=== PATIENT | female | born 1990 | race Caucasian/White ===

== ENCOUNTER 2017-02-01 10:14 | Outpatient (CLI) | payer BC ==
[2017-02-01 10:51] VITALS: BP 131/82; PULSE 93; RESP 16; TEMP 97.7
== END 2017-02-01 11:43 | disposition home or self-care (01) ==
LOC: FBPOP 10:14
PROVIDERS: ATTEND Obstetrics & Gynecology
DX: O47.1 False labor at or after 37 completed weeks of gestation (principal); Z3A.39 39 weeks gestation of pregnancy
CPT/HCPCS: 59025; 99213

== ENCOUNTER 2017-02-01 23:53 | Inpatient (IN) | payer BC ==
[2017-02-02] MEDS ORDERED: LIDOCAINE 1% (PF) 10 MG/ML (30 ML SDV) SQ PRN (01:10)
[2017-02-02] MEDS ORDERED: OXYTOCIN 10 UNIT/ML 1 ML VIAL IM PRN (01:10)
[2017-02-02] MEDS ORDERED: CARBOPROST TROMETHAMINE 250 MCG/ML 1 ML AMP IM PRN (01:10)
[2017-02-02] MEDS ORDERED: BUTORPHANOL 1 MG/ML 1 ML VIAL IV PRN (01:10)
[2017-02-02] MEDS ORDERED: TERBUTALINE 1 MG/ML VIAL SQ PRN (01:10)
[2017-02-02] MEDS ORDERED: METHYLERGONOVINE 0.2 MG/ML 1 ML AMP IM PRN (01:10)
[2017-02-02] MEDS: LACTATED RINGERS 1,000 ML IV SCH ×3 (01:40→05:54)
[2017-02-02 01:45] LABS: Basophils % (A) 0 %; CH 25.6; Eosinophils # (A) 0.1 k/uL (0-0.7); Eosinophils % (A) 0 %; HCT 31.6 % (34.0-46.0); HDW 3.88; HGB 10.8 gm/dL (11.4-16.0); Hypochromasia Slight; Luc # (Auto) 0.24; Luc % (Auto) 2; Lymphocytes # (A) 1.5 k/uL (1.0-4.8); Lymphocytes % (A) 12 %; MCH 25.7 pg (25.0-35.0); MCV 75.6 fL (80.0-100.0); Mean Platelet Volume 9.4; Microcytosis Slight; Monocytes # (A) 0.7 k/uL (0-1.0); Monocytes % (A) 5 %; Neutrophils # (A) 9.7 k/uL (1.3-7.7); Neutrophils % (A) 80 %; Poikilocytosis Slight; RBC 4.18 m/uL (3.80-5.40); RDW 15.8 % (11.5-15.5); WBC 12.1 k/uL (3.8-10.6); WBC (Perox) 11.95
[2017-02-02] MEDS ORDERED: BUPIVACAINE (PF) 0.25% 30 ML VIAL ONE (02:45)
[2017-02-02] MEDS ORDERED: fentaNYL (PF) 50 MCG/ML 5 ML AMP ONE (02:45)
[2017-02-02] MEDS ORDERED: SODIUM CHLORIDE 0.9% 100 ML BAG ONE (02:45)
[2017-02-02] MEDS ORDERED: BUPIVACAINE (PF) 0.25% 25 ML, fentaNYL (PF) 200 MCG in SODIUM CHLORIDE 0.9% 71 ML EPIDURAL ONE (02:58)
[2017-02-02] MEDS ORDERED: ONDANSETRON 4 MG/2 ML VIAL IVP STA (04:41)
[2017-02-02] MEDS ORDERED: diphenhydrAMINE 50 MG/ML 1 ML VIAL IVP STA (04:41)
[2017-02-02] MEDS: OXYTOCIN 20 UNITS/1000 ML NS 1,000 ML IV SCH (06:55)
[2017-02-02 07:53] VITALS: BMI 33.2
--- NOTE | 2017-02-02 09:15 | P.HPOB ---
History of Present Illness H&P Date: 02/02/17 Chief Complaint: 39+ weeks, early active labor The patient is a 26-year-old 1 para 0 admitted at 39+ weeks as established by last menstrual period and confirmed by second trimester ultrasound. She is admitted in early active labor having shown cervical change from presentation yesterday in the early to mid morning to her presentation last evening around midnight. Contractions were regular. Her has been uncomplicated and group B strep status is negative. Upon admission, all signs are reassuring. Obstetrical history: 1 para 0 with current statistics listed in history present illness. EDC of 02/06/2017 was established by last menstrual period and confirmed by second trimester ultrasound. Laboratory workup demonstrates a blood type of B+ with a negative antibody screen. Rubella status is immune. All other laboratory workup was within normal limits. Early Glucola as well as second trimester Glucola were within normal limits and group B strep status is negative. Gynecologic history: Unremarkable with no history of any infections to include STDs. Review of Systems Review of systems is confined to history of present illness. Past Medical History Past Medical History: No Reported History History of Any Multi-Drug Resistant Organisms: None Reported Past Surgical History: Adenoidectomy, Tonsillectomy Past Anesthesia/Blood Transfusion Reactions: Postoperative Nausea & Vomiting ( PONV) Past Psychological History: No Psychological Hx Reported Smoking Status: Never smoker - Past Family History Mother Family Medical History: Mitral Valve Prolapse (MVP) Medications and Allergies Home Medications Medication Instructions Recorded Confirmed Type Pnv,Calcium 72/Iron/Folic Acid 1 tab PO DAILY 01/23/17 02/01/17 History [ Plus Tablet] Allergies Allergy/AdvReac Type Severity Reaction Status Date / Time No Known Allergies Allergy Verified 02/01/17 23:56 Exam - Vital Signs Vital signs: Vital Signs Temp Pulse Resp BP Pulse Ox 02/01/17 23:57 96.2 F L 95 16 137/85 97 Intake and Output 02/01/17 02/02/17 02/02/17 22:59 06:59 14:59 Output Total 200 Balance -200 Output: Urine 200 Straight 200 Other: # Voids 0 Weight 102.058 kg In general, this is a well-developed, well-nourished white female in no acute distress. Her heart has a regular rhythm and rate without murmur. Her lungs are clear to auscultation bilaterally in all quiros. Her abdomen is gravid, nondistended, has normal active bowel sounds, is soft, nontender, and without any palpable masses aside from uterine fundus. Her extremities are without any cyanosis, clubbing, or significant edema and are nontender to palpation bilaterally. Digital cervical examination demonstrates her cervix to be approximately 6 cm dilated, 80% effaced, the vertex in presentation at -2 station. Artificial rupture of membranes is carried out demonstrating what appears to be lightly meconium-stained fluid. Results Result Diagrams: 02/02/17 01:40 Abnormal Lab Results - Last 24 Hours (Table) 02/02/17 Range/Units 01:40 WBC 12.1 H (3.8-10.6) k/uL Hgb 10.8 L (11.4-16.0) gm/dL Hct 31.6 L (34.0-46.0) % MCV 75.6 L (80.0-100.0) fL RDW 15.8 H (11.5-15.5) % Neutrophils # 9.7 H (1.3-7.7) k/uL Assessment and Plan (1) Active labor at term Status: Acute Plan: The patient will continue to have close maternal and surveillance and expectant management will be practiced. She does have an epidural catheter in place for analgesia and Pitocin augmentation has been added as she has made little to no progress over the last several hours. The nurse drafter topographical will be present at the delivery for the possibility of direct laryngoscopy, should it be necessary.
[2017-02-02] MEDS ORDERED: Acetaminophen-Codeine 300-30mg TAB PO PRN ×2 (10:53)
[2017-02-02] MEDS ORDERED: diphenhydrAMINE 50 MG CAP PO PRN (10:53)
[2017-02-02] MEDS ORDERED: LANOLIN CREAM 5 GM TUBE TOPICAL PRN (10:53)
[2017-02-02] MEDS ORDERED: HYDROCORTISONE 2.5% RECTAL CREAM 30 GM TUBE RECTAL PRN (10:53)
[2017-02-02] MEDS ORDERED: diphenhydrAMINE 50 MG/ML 1 ML VIAL IVP PRN ×2 (10:53)
[2017-02-02] MEDS ORDERED: ZOLPIDEM 5 MG TAB PO PRN (10:53)
[2017-02-02] MEDS ORDERED: BENZOCAINE SPRAY 57GM TOPICAL PRN (10:53)
[2017-02-02] MEDS ORDERED: ACETAMINOPHEN TAB 325 MG TAB PO PRN (10:53)
[2017-02-02] MEDS ORDERED: SIMETHICONE 80 MG CHEWABLE PO PRN (10:53)
[2017-02-02] MEDS ORDERED: WITCH HAZEL 1 EACH MED..PAD TOPICAL PRN (10:53)
[2017-02-02] MEDS ORDERED: diphenhydrAMINE 25 MG CAP PO PRN (10:53)
--- NOTE | 2017-02-02 10:57 | P.PROBDLV ---
Vaginal Delivery Note - . Vaginal Delivery Note: The patient is a 26-year-old 1 para 0 admitted at 39-3/7 weeks by good dating parameters. She is admitted in early active labor with all signs reassuring. She has been expressing latent labor for approximately 12-24 hours prior to presentation. On labor and delivery, she had an epidural catheter placed for analgesia and then her contractions slowed as did cervical dilation. She ultimately underwent artificial rupture of membranes demonstrating thin meconium-stained fluid and had Pitocin augmentation started. She then progressed fairly quickly through the remainder of the active phase of labor to complete and 0 to +1 station. She pushed over the course of approximately 20 minutes to a normal spontaneous vaginal delivery of a viable 7 lbs. 6 oz. baby girl with Apgars of 9 at 1 minute and 9 at 5 minutes delivered in the left occiput anterior position. Thorough suctioning of the nose and mouth were carried out on the perineum and the nurse branch rental manager was standing by. The baby , however was born and vigorous immediately and the nurse branch rental manager was dismissed. The placenta was delivered spontaneously, intact, and grossly normal with a grossly normal, centrally inserted three-vessel cord. There was a first-degree midline perineal laceration which was repaired with a single [id number] stitch of 3-0 chromic catgut over 1% lidocaine local block. There were no further lacerations of the perineum, vagina, or cervix. Estimated blood loss for the case was approximately 200 mL. There were no complications. All sponge, instrument, and needle counts were correct. The patient tolerated the procedure well. Both mother and are resting comfortably in recovery.
[2017-02-02] MEDS: SENNOSIDES-DOCUSATE SODIUM 1 EACH TAB PO SCH (19:42)
[2017-02-02] MEDS: IBUPROFEN 600 MG TAB PO PRN (23:09)
[2017-02-03] MEDS: OXYTOCIN 20 UNITS/1000 ML NS 1,000 ML IV SCH (00:31)
[2017-02-03] MEDS: IBUPROFEN 600 MG TAB PO PRN (08:17)
[2017-02-03] MEDS: SENNOSIDES-DOCUSATE SODIUM 1 EACH TAB PO SCH (08:18)
[2017-02-03 08:42] VITALS: RESP 20
[2017-02-03 08:44] VITALS: BP 109/64; PULSE 80; TEMP 98.5
--- NOTE | 2017-02-03 09:45 | P.DS ---
Providers Date of admission: 02/02/17 01:26 Expected date of discharge: 02/03/17 Attending physician: Waleska Kothari Primary care physician: Waleska Kothari - Discharge Diagnosis(es) (1) Active labor at term Current Visit: Yes Status: Acute (2) Normal spontaneous vaginal delivery Current Visit: Yes Status: Acute Hospital Course: The patient is a 26-year-old 1 para 0 admitted at 39+ weeks by good dating parameters. She is admitted in early active labor with all signs reassuring. Her was uncomplicated and group B strep status is negative. On admission, she had an epidural catheter placed for analgesia and then had her labor course slow. She ultimately underwent artificial rupture of membranes and Pitocin augmentation and then progressed to complete though she did a second placement of the epidural as it was dislodged. She then pushed to a normal spontaneous vaginal delivery of a viable 7 lbs. 6 oz. baby girl with Apgars of 9 at 1 minute and 9 at 5 minutes. Her course was unremarkable with vital signs remaining stable and her temperature was afebrile throughout. She was deemed stable for discharge by day #1 was discharged home to follow-up in the office in 6 weeks' time routinely. Discharge instructions in included calling for any significantly increased bleeding or foul-smelling lochia, significantly increased fever abdominal pain, perineal complaints, breast complaints, or anything else that concerned her. She was additionally instructed to have nothing in the vagina for at least 6 weeks time to include intercourse. She understood her instructions and agrees to follow up as noted above. Discharge medications included continued vitamins as she has opted to attempt to breast-feed. She was additionally to take [id number] analgesic pain medications. Maternal blood type is B+ and rubella status is immune. Procedures: #1. Epidural analgesia #2. Artificial rupture of membranes #3. Pitocin augmentation #4. Normal spontaneous vaginal delivery #5. Repair of perineal laceration Patient Condition at Discharge: Good Plan - Discharge Summary Discharge Medication List Pnv,Calcium 72/Iron/Folic Acid [ Plus Tablet] 1 tab PO DAILY 01/23/17 [ History] Follow up Appointment(s)/Referral(s): Waleska Kothari MD [Primary Care Provider] - 6 Weeks Discharge Disposition: HOME SELF-CARE
== END 2017-02-03 12:25 | disposition home or self-care (01) | DRG 775 ==
LOC: FBPOP 23:53 → 4FBP 02-02 01:26
PROVIDERS: ADMIT Obstetrics & Gynecology; ATTEND Obstetrics & Gynecology
PROC: 10E0XZZ Delivery of Products of Conception, External Approach (ICD-10-PCS; principal; 2017-02-02)
PROC: 0HQ9XZZ Repair Perineum Skin, External Approach (ICD-10-PCS; 2017-02-02)
PROC: 10907ZC Drainage of Amniotic Fluid, Therapeutic from Products of Conception, Via Natural or Artificial Opening (ICD-10-PCS; 2017-02-02)
PROC: 00HU33Z Insertion of Infusion Device into Spinal Canal, Percutaneous Approach (ICD-10-PCS; 2017-02-02)
PROC: 3E0R3CZ (ICD-10-PCS; 2017-02-02)
DX: O77.0 Labor and delivery complicated by meconium in amniotic fluid (principal); O70.0 First degree perineal laceration during delivery; Z37.0 Single live birth; Z3A.39 39 weeks gestation of pregnancy
CPT/HCPCS: 59025; 85025; 88307; 99213

== ENCOUNTER → 2019-01-20 | Outpatient (CLI) | payer OTHER ==
--- NOTE | 2019-01-20 09:47 | US ---
EXAMINATION TYPE: US gallbladder DATE OF EXAM: 01/20/2019 COMPARISON: NONE CLINICAL HISTORY: Post-parandial abd pain R10.11. patient is 28 weeks . Epigastric pain, back pain for 3 days. Nausea EXAM MEASUREMENTS: Liver Length: 18.3 cm Gallbladder Wall: 0.2 cm CBD: 0.3 cm Right Kidney: 12.3 x 5.2 x 5.0 cm Pancreas: visualized portions appear wnl Liver: upper limits of normal Gallbladder: no evidence of stones Evidence for sonographic Martin's sign: no CBD: appears wnl Right Kidney: no evidence of hydronephrosis nor nephrolithiasis IMPRESSION: No sonographic evidence of cholelithiasis nor acute cholecystitis. Incidentally the liver measures upper limits of normal in size.
== END | disposition home or self-care (01) ==
LOC: RADUSWWP 08:51
PROVIDERS: ATTEND Obstetrics & Gynecology
DX: O26.893 Other specified pregnancy related conditions, third trimester (principal); R10.11 Right upper quadrant pain; Z3A.28 28 weeks gestation of pregnancy
CPT/HCPCS: 76705

== ENCOUNTER 2019-04-07 06:15 | Inpatient (IN) | payer OTHER ==
[2019-04-07] MEDS ORDERED: LIDOCAINE 0.5% (PF) 5 MG/ML (50 ML SDV) SQ PRN (06:41)
[2019-04-07] MEDS ORDERED: CARBOPROST TROMETHAMINE 250 MCG/ML 1 ML AMP IM PRN (06:41)
[2019-04-07] MEDS ORDERED: OXYTOCIN 10 UNIT/ML 1 ML VIAL IM PRN (06:41)
[2019-04-07] MEDS ORDERED: METHYLERGONOVINE 0.2 MG/ML 1 ML AMP IM PRN (06:41)
[2019-04-07] MEDS ORDERED: TERBUTALINE 1 MG/ML VIAL SQ PRN (06:41)
[2019-04-07] MEDS ORDERED: OXYTOCIN 30 UNITS/500 ML NS 30 UNIT in SALINE 1 500ML.BAG IV SCH (06:45)
[2019-04-07 06:51] LABS: Basophils % (A) 0 %; Eosinophils # (A) 0.1 k/uL (0-0.7); Eosinophils % (A) 1 %; HCT 34.1 % (34.0-46.0); HGB 11.2 gm/dL (11.4-16.0); Lymphocytes # (A) 1.8 k/uL (1.0-4.8); Lymphocytes % (A) 21 %; MCH 25.4 pg (25.0-35.0); MCHC 32.9 g/dL (31.0-37.0); MCV 77.3 fL (80.0-100.0); Mean Platelet Volume 8.4; Microcytosis Slight; Monocytes # (A) 0.5 k/uL (0-1.0); Monocytes % (A) 6 %; Neutrophils # (A) 6.1 k/uL (1.3-7.7); Neutrophils % (A) 70 %; Platelet Count 210 k/uL (150-450); RBC 4.41 m/uL (3.80-5.40); RDW 15.8 % (11.5-15.5); WBC 8.6 k/uL (3.8-10.6)
[2019-04-07] MEDS: LACTATED RINGERS 1,000 ML IV SCH ×3 (07:00→10:30)
[2019-04-07] MEDS ORDERED: BUTORPHANOL 1 MG/ML 1 ML VIAL IV PRN (08:37)
[2019-04-07] MEDS ORDERED: ONDANSETRON 4 MG/2 ML VIAL IVP PRN (08:37)
--- NOTE | 2019-04-07 08:43 | P.HPOB ---
History of Present Illness H&P Date: 04/07/19 Chief Complaint: 39-0/7 weeks, elective induction The patient is a 29-year-old 2 para 1001 admitted at 39-0/7 weeks as established by a 6 week ultrasound. She is admitted for elective induction with all signs reassuring. Her has been uncomplicated and group B strep status is negative. Obstetrical history: 2 para 1001 with 1 term vaginal delivery without complications. Current statistics are listed above. EDC of 04/14/2019 was established by 6 week ultrasound. Laboratory workup demonstrates a blood type of B+ with a negative antibody screen. Rubella status is immune. The remainder of the laboratory workup was within normal limits. Early Glucola as well as second trimester Glucola were both within normal limits. Group B s trep status is negative. Gynecologic history: Unremarkable with no history of any infections to include STDs. Review of Systems Review of systems is confined to history of present illness. Past Medical History Past Medical History: No Reported History History of Any Multi-Drug Resistant Organisms: None Reported Past Surgical History: Adenoidectomy, Tonsillectomy Past Anesthesia/Blood Transfusion Reactions: Postoperative Nausea & Vomiting (PONV) Past Psychological History: No Psychological Hx Reported Smoking Status: Never smoker - Past Family History Mother Family Medical History: Mitral Valve Prolapse (MVP) Medications and Allergies Home Medications Medication Instructions Recorded Confirmed Type Lansoprazole [Prevacid] 15 mg PO DAILY PRN 04/07/19 04/07/19 History Ondansetron [Zofran] 4 mg PO Q12HR PRN 04/07/19 04/07/19 History Allergies Allergy/AdvReac Type Severity Reaction Status Date / Time No Known Allergies Allergy Verified 04/07/19 06:31 Exam Intake and Output 04/06/19 04/07/19 04/07/19 22:59 06:59 14:59 Other: Weight 105.233 kg In general, this is a well-developed, well-nourished white female in no acute distress. Her heart has a regular rhythm and rate without murmur. Her lungs are clear to auscultation bilaterally in all quiros. Her abdomen is gravid, nondistended, has normal active bowel sounds, soft, nontender, and without any palpable masses aside from uterine fundus. Her extremities without any cyanosis, clubbing, or edema and are nontender to palpation bilaterally. Digital cervical examination done [facility] 2+ centimeters dilated, 50-60% effaced, with the vertex in presentation at -2 station. Artificial rupture of membranes is carried out demonstrating clear fluid. Results Result Diagrams: 04/07/19 06:37 Abnormal Lab Results - Last 24 Hours (Table) 04/07/19 Range/Units 06:37 Hgb 11.2 L (11.4-16.0) gm/dL MCV 77.3 L (80.0-100.0) fL RDW 15.8 H (11.5-15.5) % Assessment and Plan (1) Term Current Visit: Yes Status: Acute Code(s): Z34.90 - ENCNTR FOR SUPRVSN OF NORMAL , UNSP, UNSP TRIMESTER SNOMED Code(s): 74454414 Plan: The patient is admitted for elective induction of labor understanding that there may be a slightly increased risk for delivery elective circumstances. She has had Pitocin augmentation started and will continue to have close mate rnal and surveillance and expectant management will be practiced. She is a good candidate for either IV or epidural analgesia, whichever she may choose.
[2019-04-07] MEDS ORDERED: ROPIVACAINE 5MG/ML 20ML VIAL ONE (09:56)
[2019-04-07] MEDS ORDERED: fentaNYL (PF) 50 MCG/ML 5 ML AMP ONE (09:56)
[2019-04-07] MEDS ORDERED: SODIUM CHLORIDE 0.9% 100 ML BAG ONE (09:56)
[2019-04-07] MEDS ORDERED: ACETAMINOPHEN TAB 325 MG TAB PO PRN (13:58)
[2019-04-07] MEDS ORDERED: HYDROCORTISONE 2.5% RECTAL CREAM 30 GM TUBE RECTAL PRN (13:58)
[2019-04-07] MEDS ORDERED: diphenhydrAMINE 50 MG CAP PO PRN (13:58)
[2019-04-07] MEDS ORDERED: HYDROcodone/APAP 5-325MG 1 EACH TAB PO PRN (13:58)
[2019-04-07] MEDS ORDERED: diphenhydrAMINE 25 MG CAP PO PRN (13:58)
[2019-04-07] MEDS ORDERED: LANOLIN CREAM 5 GM TUBE TOPICAL PRN (13:58)
[2019-04-07] MEDS ORDERED: ZOLPIDEM 5 MG TAB PO PRN (13:58)
[2019-04-07] MEDS ORDERED: diphenhydrAMINE 50 MG/ML 1 ML VIAL IVP PRN ×2 (13:58)
[2019-04-07] MEDS ORDERED: HYDROcodone/APAP 7.5-325MG 1 EACH TAB PO PRN (13:58)
[2019-04-07] MEDS ORDERED: BENZOCAINE/MENTHOL SPRAY 1 GM/SPRAY AEROSOL TOPICAL PRN (13:58)
[2019-04-07] MEDS ORDERED: WITCH HAZEL 1 EACH MED..PAD TOPICAL PRN (13:58)
[2019-04-07] MEDS ORDERED: SIMETHICONE 80 MG CHEWABLE PO PRN (13:58)
[2019-04-07] MEDS ORDERED: OXYTOCIN 20 UNITS/1000 ML NS 1,000 ML IV SCH (14:00)
--- NOTE | 2019-04-07 14:00 | P.PROBDLV ---
Vaginal Delivery Note - . Vaginal Delivery Note: The patient is a 29-year-old 2 para 1001 admitted at 39-0/7 weeks by good dating parameters. She is admitted for elective induction of labor with all signs reassuring. Her has been uncomplicated and group B strep status is negative. On labor and delivery, she had Pitocin started followed by artificial rupture of membranes. She had an epidural catheter placed her on the onset of the active phase of labor. She then progressed fairly quickly through the active phase to complete and -1 station. She pushed over the course of 4 contractions to a normal spontaneous vaginal delivery of a viable 8 lbs. 4 oz. baby boy with Apgars of 9 at 1 minute and 9 at 5 minutes delivered in the left occiput anterior position. The placenta was delivered spontaneously, intact, and grossly normal with a grossly normal marginally inserted three-vessel cord. There were no lacerations of the perineum, vagina, or cervix. Estimated blood loss for the entire case was approximately 200 mL. There are no complications. All sponge, instrument, needle counts were correct. Both mother and infant are resting comfortably in recovery.
[2019-04-07] MEDS: SENNOSIDES-DOCUSATE SODIUM 1 EACH TAB PO SCH (19:45)
[2019-04-07 22:46] VITALS: RESP 16
[2019-04-07] MEDS: IBUPROFEN 600 MG TAB PO PRN (23:24)
--- NOTE | 2019-04-08 08:52 | P.DS ---
Providers Date of admission: 04/07/19 06:20 Expected date of discharge: 04/08/19 Attending physician: Tima Barrera Primary care physician: Stated None - Discharge Diagnosis(es) (1) Term Current Visit: Yes Status: Acute (2) Normal spontaneous vaginal delivery Current Visit: Yes Status: Acute Hospital Course: The patient is a 29-year-old 2 para 1001 admitted at 39-0/7 weeks by good dating parameters. She is admitted for elective induction with all signs reassuring. Her was uncomplicated and group B strep status is negative. On labor and delivery, she had Pitocin started followed by artificial rupture of membranes with clear fluid. She had an epidural catheter placed for analgesia. She progressed quickly through the active phase of labor to complete and pushed to a normal spontaneous vaginal delivery of a viable 8 lbs. 4 oz. baby boy with Apgars of 9 at 1 minute and 9 at 5 minutes. Her course was unremarkable vital signs remaining stable and her temperature was afebrile throughout. She was deemed stable for discharge on day #1 was discharged home to follow-up in the office in 6 weeks' time routinely. Discharge instructions included calling for any significantly increased bleeding or foul-smelling lochia, significantly increased fever abdominal pain, perineal complaints, breast complaints, or anything else that concerned her. She was additionally instructed to have nothing in the vagina for least 6 weeks time to include intercourse. She understood all of her instructions and agrees to follow up as noted above. Discharge medications included continued vitamins as she has opted to breast-feed. She otherwise was to use [id number] analgesic pain medications as needed. Maternal blood type is B+ and rubella status is immune. Procedures: #1. Pitocin induction #2. Artificial rupture of membranes #3. Epidural analgesia #4. Normal spontaneous vaginal delivery Patient Condition at Discharge: Good Plan - Discharge Summary New Discharge Prescriptions: No Action Lansoprazole [Prevacid] 15 mg PO DAILY PRN PRN Reason: Heartburn Ondansetron [Zofran] 4 mg PO Q12HR PRN PRN Reason: Nausea Discharge Medication List Lansoprazole [Prevacid] 15 mg PO DAILY PRN 04/07/19 [History] Ondansetron [Zofran] 4 mg PO Q12HR PRN 04/07/19 [History] Follow up Appointment(s)/Referral(s): Tima Barrera MD [STAFF PHYSICIAN] - 6 Weeks Discharge Disposition: HOME SELF-CARE
[2019-04-08] MEDS: IBUPROFEN 600 MG TAB PO PRN (08:57)
[2019-04-08] MEDS: SENNOSIDES-DOCUSATE SODIUM 1 EACH TAB PO SCH (08:57)
[2019-04-08 09:51] VITALS: BP 107/60; PULSE 77; TEMP 97.4
== END 2019-04-08 15:05 | disposition home or self-care (01) | DRG 807 ==
LOC: 4FBP 06:20
PROVIDERS: ADMIT Obstetrics & Gynecology; ATTEND Obstetrics & Gynecology
PROC: 10907ZC Drainage of Amniotic Fluid, Therapeutic from Products of Conception, Via Natural or Artificial Opening (ICD-10-PCS; principal; 2019-04-07)
PROC: 00HU33Z Insertion of Infusion Device into Spinal Canal, Percutaneous Approach (ICD-10-PCS; principal; 2019-04-07)
PROC: 3E0R3NZ Introduction of Analgesics, Hypnotics, Sedatives into Spinal Canal, Percutaneous Approach (ICD-10-PCS; principal; 2019-04-07)
PROC: 3E033VJ Introduction of Other Hormone into Peripheral Vein, Percutaneous Approach (ICD-10-PCS; principal; 2019-04-07)
PROC: 10E0XZZ Delivery of Products of Conception, External Approach (ICD-10-PCS; principal; 2019-04-07)
DX: O80 Encounter for full-term uncomplicated delivery (principal); Z37.0 Single live birth; Z3A.39 39 weeks gestation of pregnancy; Z79.899 Other long term (current) drug therapy
CPT/HCPCS: 85025; 86850; 86900; 86901